=== PATIENT | female | born 1975 | race Two or more races ===

== ENCOUNTER 2020-06-18 13:27 | Emergency (ER) | payer SELFPAY ==
[~2020-06-18] VITALS: Ht 172.7 cm; Wt 83.1 kg
--- NOTE | 2020-06-18 14:42 | NUR ---
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
--- NOTE | 2020-06-18 14:47 | NUR ---
pt refusing lab work and to provided an UA for this rn stating "I just want to talk with a doctor, i'm here for acid reflex"
--- NOTE | 2020-06-18 15:01 | NUR ---
PT AGREED TO UA AND LABS. DR. HENRY TO BEDSIDE FOR EVALUATION. PT STATING SHES HERE "RADIATION IN HER HOME AND CAUSING A LOT OF PRESSURE IN HER HEAD, CAUSING A BUMP IN HER HEAD" PT ATTACHED TO MONITORS. VSS. BLANCA.
--- NOTE | 2020-06-18 15:04 | NUR ---
PER DR. HENRY NO LABS AND NO UA NEEDED. PT DENIES SI AND HI. [id number]. PT STATES SHES FROM [facility]. SHE LEFT FOR VACTIONS BECAUSE "RADIATION CAUSING PRESSURE IN HER HEAD AND BODY"
--- NOTE | 2020-06-18 15:20 | NUR ---
[facility] SOCIAL WORK AT BEDSIDE
[2020-06-18 15:48] LABS: BASOPHILS % (AUTO) 0 % (0-1); EOSINOPHILS % (AUTO) 0 % (1-7); LYMPHOCYTES % (AUTO) 13 % (22-44); MEAN CORPUSCULAR HEMOGLOBIN 29.7 pg (27.0-34.8); MEAN CORPUSCULAR HGB CONC 33.7 g/dL (32.4-35.8); MEAN PLATELET VOLUME 8.4 fL (7.4-10.4); MONOCYTES % (AUTO) 5 % (2-9); NEUTROPHILS % (AUTO) 82 % (42-75); PLATELET COUNT 336 x10^3/uL (130-400); RED BLOOD COUNT 4.37 x10^6/uL (3.82-5.3); RED CELL DISTRIBUTION WIDTH 13.2 % (9.6-15.2)
[2020-06-18 15:52] LABS: MD NO
[2020-06-18 15:58] LABS: ALBUMIN 4.4 g/dL (3.4-5.0); ANION GAP 6 mmol/L (5-15); CALCIUM 9.6 mg/dL (8.5-10.1); CHLORIDE 106 mmol/L (98-107)
[2020-06-18 16:08] LABS: ALANINE AMINOTRANSFERASE 23 U/L (12-78); ALKALINE PHOSPHATASE 104 U/L (45-117); BILIRUBIN,TOTAL 0.4 mg/dL (0.2-1.0); CREATININE 0.94 mg/dL (0.55-1.02); SALICYLATE LEVEL < 1.7 mg/dL (2.8-20.0); TOTAL PROTEIN 8.6 g/dL (6.4-8.2)
[2020-06-18 16:13] LABS: MICROSCOPIC INDICATED
[2020-06-18 16:14] LABS: AMPHETAMINE SCREEN, URINE Negative (Negative); BARBITURATE SCREEN, URINE Positive (Negative); BENZODIAZEPINE SCREEN, URINE Negative (Negative); CANNABINOID SCREEN, URINE Negative (Negative); COCAINE SCREEN, URINE Negative (Negative); METHADONE SCREEN, URINE Negative (Negative); OPIATE SCREEN, URINE Negative (Negative)
[2020-06-18 17:27] VITALS: BP 144/85
== END 2020-06-18 17:30 | disposition home or self-care (01) ==
LOC: ED 17:20
DX: F23 Brief psychotic disorder (principal); F22 Delusional disorders
CPT/HCPCS: 36415; 80053; 80299; 80307; 80320; 80329; 81001; 84703; 85025; 87086; 99283; 99284; G0480